=== PATIENT | female | born 1980 | race African-American/Black ===

== ENCOUNTER 2025-06-22 11:00 | Inpatient (IN) | payer BC, OTHER ==
[~2025-06-22] VITALS: Ht 162.6 cm; Wt 121.8 kg
--- NOTE | 2025-06-22 11:16 | ED.PDOC ---
HPI Comments This is a 44 year old female CRISTAL presenting to the ED with chief complaint of SVT. Patient reports that she begun to experiencing chest pain with associated fast heart rate this morning, calling 911 for assistance. EMS relays patient's initial heart rate read in the 230s. EMS states patient was given 6mg of Adenosine with successful conversion from SVT to sinus tachycardia in the 110s. Patient notes that her symptoms have improved, but she is still experiencing chest pain. Patient reports that her last dose of HTN medication was 2 days ago. Patient denies any SOB, dizziness, N/V, abdominal pain, syncope, or headache. 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 Family History Family History: Reviewed,noncontributory to illness Social History Smoker: Non-Smoker Alcohol: Denies ETOH Use Drugs: Denies Drug Use Lives In: Home Constitutional: denies: chills, diaphoresis, fatigue, fever, malaise, sweats, weakness, others EENTM: denies: blurred vision, double vision, ear bleeding, ear discharge, ear drainage, ear pain, ear ringing, eye pain, eye redness, hearing loss, mouth pain, mouth swelling, nasal discharge, nose bleeding, nose congestion, nose pain, photophobia, tearing, throat pain, throat swelling, voice changes, others Respiratory: denies: cough, hemoptysis, orthopnea, SOB at rest, shortness of breath, SOB with excertion, stridor, wheezing, others Cardiovascular: reports: chest pain, irregular heart beat; denies: dizzy spells, diaphoresis, Dyspnea on exertion, edema, left arm pain, lightheadedness, palpitations, PND, syncope, others Gastrointestinal: denies: abdomen distended, abdominal pain, blood streaked bowels, constipated, diarrhea, dysphagia, difficulty swallowing, hematemesis, melena, nausea, poor appetite, poor fluid intake, rectal bleeding, rectal pain, vomiting, others Genitourinary: denies: abnormal vagina bleeding, burning, dyspareunia, dysuria, flank pain, frequency, hematuria, incontinence, pain, , vagina discharge, urgency, others Neurological: denies: dizziness, fainting, headache, left sided numbness, left sided weakness, numbness, paresthesia, pre-existing deficit, right sided numbness, right sided weakness, seizure, speech problems, tingling, tremors, weakness, others Musculoskeletal: denies: back pain, gout, joint pain, joint swelling, muscle pain, muscle stiffness, neck pain, others Integumetry: denies: bruises, change in color, change in hair/nails, dryness, laceration, lesions, lumps, rash, wounds, others Allergic/Immunocompromised: denies: Difficulty Healing, Frequent Infections, Hives, Itching, others Hematologic/Lymphatic: denies: anemia, blood clots, easy bleeding, easy bruising, swollen glands, others Endocrine: denies: excessive hunger, excessive sweating, excessive thirst, excessive urination, flushing, intolerance to cold, intolerance to heat, unexplained weight gain, unexplained weight loss, others Psychiatric: denies: anxiety, bipolar disorder, depression, hopeless, panic disorder, schizophrenia, sleepless, suicidal, others All Other Systems: Reviewed and Negative Physical Exam General Appearance: No Apparent Distress, Normal HEENT: Normal ENT Inspection, Pharynx Normal, TMs Normal Neck: Full Range of Motion, Non-Tender, Normal, Normal Inspection Respiratory: Chest Non-Tender, Lungs Clear, No Accessory Muscle Use, No Respiratory Distress, Normal Breath Sounds Cardiovascular: No Edema, No JVD, No Murmur, No Gallop, Normal Peripheral Pulses, Tachycardia Breast Exam: Deferred Gastrointestinal: No Organomegaly, Non Tender, No Pulsatile Mass, Normal Bowel Sounds, Soft Genitalia: Deferred Pelvic: Deferred Rectal: Deferred Extremities: No calf tenderness, Normal capillary refill, Normal inspection, Normal range of motion, Non-tender, No pedal edema Musculoskeletal : Apperance: Normal Neurologic: Alert, 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 Was a procedure done?: No CP Differential Dx Differential Diagnosis: PSVT X-Ray, Labs, Meds, VS Vital Signs Date Time Temp Pulse Resp B/P (MAP) Pulse Ox O2 Delivery O2 Flow Rate FiO2 06/22/25 13:54 88 06/22/25 11:55 107 06/22/25 11:42 98.7 108 18 134/81 (98) 96 98.7 06/22/25 11:42 108 18 96 Room Air* 0 21 06/22/25 11:12 98.8 111 16 174/98 100 98.8 06/22/25 11:07 106 Lab Test 06/22/25 13:15 06/22/25 11:36 06/22/25 11:29 Range/Units Troponin I High Sensitivity 110 *H 20 </=34 ng/L Urine Test Negative Negative White Blood Count 7.8 4.4-10.8 10^3/uL Red Blood Count 5.51 H 4.0-5.20 10^6/uL Hemoglobin 17.2 H 12.2-16.2 g/dL Hematocrit 51.8 H 36.0-46.0 % Mean Corpuscular Volume 94.1 80.0-100.0 fL Mean Corpuscular Hemoglobin 31.2 28.0-32.0 pg Mean Corpuscular Hemoglobin Concent 33.2 32.0-36.0 g/dL Red Cell Distribution Width 14.3 11.8-14.3 % Platelet Count 386 140-450 10^3/uL Mean Platelet Volume 7.9 6.9-10.8 fL Neutrophils (%) (Auto) 69.3 37.0-80.0 % Lymphocytes (%) (Auto) 24.0 10.0-50.0 % Monocytes (%) (Auto) 5.3 0.0-12.0 % Eosinophils (%) (Auto) 0.5 0.0-7.0 % Basophils (%) (Auto) 0.9 0.0-2.0 % Neutrophils # (Auto) 5.4 1.6-8.6 10 ^3/uL Lymphocytes # (Auto) 1.9 0.4-5.4 10 ^3/uL Monocytes # (Auto) 0.4 0-1.3 10 ^3/uL Eosinophils # (Auto) 0 0-0.8 10 ^3/uL Basophils # (Auto) 0.1 0-0.2 10 ^3/uL Nucleated Red Blood Cells 0.2 % Sodium Level 141 136-145 mmol/L Potassium Level 3.6 3.5-5.1 mmol/L Chloride Level 104 98-107 mmol/L Carbon Dioxide Level 23 20-31 mmol/L Anion Gap 14 5-15 Blood Urea Nitrogen 10 9-23 mg/dL Creatinine 0.96 0.550-1.02 mg/dL Glomerular Filtration Rate Calc 76 >90 mL/min BUN/Creatinine Ratio 10.4 10.0-20.0 Serum Glucose 95 74-106 mg/dL Calcium Level 10.2 8.7-10.4 mg/dL Time of 1ST Reevaluation: 12:13 Reevaluation 1ST: Improved Patient Education/Counseling: Diagnosis, Treatment Family Education/Counseling: No Family Present SEPSIS Sepsis Screen Physician Orders Chest Portable (06/22/25 11:12) Electrocardigram (06/22/25 11:12) Troponin-I Hs (06/22/25 14:12) Electrocardigram (06/22/25 12:12) Electrocardigram (06/22/25 14:12) Vital Signs Date Time Temp Pulse Resp B/P (MAP) Pulse Ox O2 Delivery O2 Flow Rate FiO2 06/22/25 13:54 88 06/22/25 11:55 107 06/22/25 11:42 98.7 108 18 134/81 (98) 96 98.7 06/22/25 11:42 108 18 96 Room Air* 0 21 06/22/25 11:12 98.8 111 16 174/98 100 98.8 06/22/25 11:07 106 Laboratory Tests Test 06/22/25 11:29 White Blood Count 7.8 10^3/uL (4.4-10.8) Departure 1 Departure Time of Disposition: 15:38 (Patient presented with chest pain that was concerning for possible STEMI, ACS, PE, Pneumonia, Muscle Strain, COPD, Dissection. Data: 1. I ordered and reviewed the result of at least 3 labs including a CBC, BMP, and Troponin. 2. I independently interpreted the following tests: EKG which shows normal sinus and Chest X-ray which shows benign chest.Risk:This patient has a high risk of morbidity due to further diagnostic testing or treatment and may suffer from an acute cardiac or respiratory disorder. Workup reveals elevated troponin after SVT. and patient should be admitted for further workup and possible expert consultation. ) Impression: Primary Impression: Acute chest pain Additional Impressions: Elevated troponin Paroxysmal SVT (supraventricular tachycardia) Disposition: ADMITTED INPATIENT Admit to: Tele Condition: Guarded Critical Care Note Critical Care Time?: No Stability Stability form required: No Heart Score Heart Score: Heart Score Response (Comments) Value History Highly Suspicious 2 EKG Repolarization Disturb 1 Age <45 0 Risk Factors 1 or 2 risk factors 1 Troponin >3 x's Normal limit 2 Total 6 I personally scribed for CHIRAG REYES MD ([email or web address]) on 06/22/25 at 11:15. Electronically submitted by Dex Ling ([email or web address]). CHIRAG REYES MD Jun 22, 2025 11:15
[2025-06-22 11:42] VITALS: PULSE 108; RESP 18; O2SAT 96
[2025-06-22 12:04] LABS: Hematocrit 51.8 % (36.0-46.0); Hemoglobin 17.2 g/dL (12.2-16.2); Mean Corpuscular Hemoglobin 31.2 pg (28.0-32.0); Mean Corpuscular Volume 94.1 fL (80.0-100.0); Nucleated Red Blood Cells % 0.2 %
[2025-06-22 12:13] LABS: Chloride 104 mmol/L (98-107); Potassium 3.6 mmol/L (3.5-5.1); Sodium 141 mmol/L (136-145)
[2025-06-22 12:14] LABS: Anion Gap 14 (5-15); Carbon Dioxide 23 mmol/L (20-31)
[2025-06-22 12:15] LABS: Calcium 10.2 mg/dL (8.7-10.4)
[2025-06-22 12:20] LABS: BUN/Creatinine Ratio 10.4 (10.0-20.0); Blood Urea Nitrogen 10 mg/dL (9-23); Glucose 95 mg/dL (74-106)
--- NOTE | 2025-06-22 13:54 | DVH ---
EXAM: XY CHEST PORTABLE Indication: palpitations Technique: Single frontal view of the chest was obtained Comparison: None FINDINGS: Lines and Tubes: None Lungs: No focal consolidation. Pleura: No effusion. No pneumothorax. Cardiomediastinal contours: Unremarkable Bones: No acute osseous abnormality. IMPRESSION: No acute cardiopulmonary disease.
[2025-06-22 19:30] VITALS: PULSE 96; RESP 18; O2SAT 96
[2025-06-22] MEDS ORDERED: ACETAMINOPHEN 325 MG TAB PO PRN (19:45)
[2025-06-22] MEDS ORDERED: TEMAZEPAM 15 MG CAP PO PRN (19:45)
[2025-06-22] MEDS ORDERED: ONDANSETRON HCL 4 MG/2 ML VIAL IV PRN (19:45)
[2025-06-22] MEDS ORDERED: MORPHINE SULFATE INJ 2 MG/ml SYRG IV PRN (20:00)
[2025-06-22] MEDS ORDERED: NITROGLYCERIN 0.4 MG SL TAB SL PRN (20:00)
[2025-06-22] MEDS: hydrALAZINE HCL 20 MG/ML VL IV PRN (20:02)
[2025-06-22 20:11] LABS: Chloride 106 mmol/L (98-107); Potassium 3.7 mmol/L (3.5-5.1); Sodium 141 mmol/L (136-145)
[2025-06-22 20:12] LABS: Anion Gap 10 (5-15); Carbon Dioxide 25 mmol/L (20-31)
[2025-06-22 20:13] LABS: Calcium 8.9 mg/dL (8.7-10.4)
[2025-06-22 20:17] LABS: BUN/Creatinine Ratio 13.8 (10.0-20.0); Blood Urea Nitrogen 12 mg/dL (9-23)
[2025-06-22 20:19] LABS: Glucose 108 mg/dL (74-106)
[2025-06-22] MEDS: ATORVASTATIN 20 MG TAB PO SCH (21:29)
--- NOTE | 2025-06-22 22:11 | DVHHP2 ---
History of Present Illness Reason for Visit: Chest pain History of Present Illness 44-year-old female presents for evaluation of chest pain. Patient reports developing chest pain today while watching TV. She describes the chest pain as substernal sharp with associated palpitations. Denies shortness or breath, nausea or vomiting. She states episode lasted approximately 20 minutes. In route patient was noted to be in SVT. Patient was given adenosine and converted to normal sinus rhythm. Past Medical History Hypertension Past Surgical History Denies Family History Noncontributory Smoke: No ALCOHOL: none Drugs: None Lives: with Family Review of Systems Review of Systems Review of systems are currently negative otherwise addressed in HPI. Allergies: Coded Allergies: NO KNOWN ALLERGIES (Unverified , 06/22/25) Medications Current Medications Medications Dose Ordered Sig/Jori Route Start Time Stop Time Status Last Admin Dose Admin Hydralazine HCl 10 mg Q6HP PRN IV 06/22/25 19:45 06/22/25 20:02 10 MG Aspirin 162 mg DAILY PO 06/23/25 10:00 Atorvastatin Calcium 10 mg HS PO 06/22/25 22:00 06/22/25 21:29 10 MG Temazepam 15 mg QHSP PRN PO 06/22/25 19:45 Ondansetron HCl 4 mg Q4HP PRN IV 06/22/25 19:45 Acetaminophen 650 mg Q6HP PRN PO 06/22/25 19:45 Nitroglycerin 0.4 mg Q5MINP PRN SL 06/22/25 20:00 Morphine Sulfate 2 mg Q30M PRN IV 06/22/25 20:00 Exam Vital Signs Vital Signs Date Time Temp Pulse Resp B/P (MAP) Pulse Ox O2 Delivery O2 Flow Rate FiO2 06/22/25 20:02 164/101 06/22/25 20:00 87 06/22/25 19:30 18 96 Room Air* 0 21 06/22/25 19:30 99.3 99.3 Exam Gen: 44-year-old female in mild distress. Skin: Warm, dry, normal color and texture, no rash. HEENT: Normocephalic atraumatic, mucous membranes moist and pink. Neck: Cervical and supraclavicular nodes normal without enlargement, trachea is midline, thyroid gland is normal without masses. Pulmonary: Clear to auscultation and percussion bilaterally. Cardiac: Regular rate and rhythm. No murmur Abdomen: Soft, nontender, nondistended, bowel sounds present all 4 quadrants, no guarding, no rigidity, no organomegaly. Extremities: No cyanosis, clubbing, no edema Neuro: Cranial nerves II through XII grossly intact, normal affect and speech, no focal motor deficits. Labs/Xrays ORDERING PHYSICIAN: CHIRAG REYES MD PROCEDURE(s): CXRP - CHEST PORTABLE REASON: palpitations ORDER NUMBER(s): [id number], ACCESSION NUMBER(s): [id number] EXAM: XY CHEST PORTABLE Indication: palpitations Technique: Single frontal view of the chest was obtained Comparison: None FINDINGS: Lines and Tubes: None Lungs: No focal consolidation. Pleura: No effusion. No pneumothorax. Cardiomediastinal contours: Unremarkable Bones: No acute osseous abnormality. IMPRESSION: No acute cardiopulmonary disease. Labs Test 06/22/25 19:45 06/22/25 11:36 06/22/25 11:29 Range/Units Sodium Level 141 136-145 mmol/L Potassium Level 3.7 3.5-5.1 mmol/L Chloride Level 106 98-107 mmol/L Carbon Dioxide Level 25 20-31 mmol/L Anion Gap 10 5-15 Blood Urea Nitrogen 12 9-23 mg/dL Creatinine 0.87 0.550-1.02 mg/dL Glomerular Filtration Rate Calc 85 >90 mL/min BUN/Creatinine Ratio 13.8 10.0-20.0 Serum Glucose 108 H 74-106 mg/dL Calcium Level 8.9 8.7-10.4 mg/dL Troponin I High Sensitivity 171 *H </=34 ng/L Urine Test Negative Negative White Blood Count 7.8 4.4-10.8 10^3/uL Red Blood Count 5.51 H 4.0-5.20 10^6/uL Hemoglobin 17.2 H 12.2-16.2 g/dL Hematocrit 51.8 H 36.0-46.0 % Mean Corpuscular Volume 94.1 80.0-100.0 fL Mean Corpuscular Hemoglobin 31.2 28.0-32.0 pg Mean Corpuscular Hemoglobin Concent 33.2 32.0-36.0 g/dL Red Cell Distribution Width 14.3 11.8-14.3 % Platelet Count 386 140-450 10^3/uL Mean Platelet Volume 7.9 6.9-10.8 fL Neutrophils (%) (Auto) 69.3 37.0-80.0 % Lymphocytes (%) (Auto) 24.0 10.0-50.0 % Monocytes (%) (Auto) 5.3 0.0-12.0 % Eosinophils (%) (Auto) 0.5 0.0-7.0 % Basophils (%) (Auto) 0.9 0.0-2.0 % Neutrophils # (Auto) 5.4 1.6-8.6 10 ^3/uL Lymphocytes # (Auto) 1.9 0.4-5.4 10 ^3/uL Monocytes # (Auto) 0.4 0-1.3 10 ^3/uL Eosinophils # (Auto) 0 0-0.8 10 ^3/uL Basophils # (Auto) 0.1 0-0.2 10 ^3/uL Nucleated Red Blood Cells 0.2 % SEPSIS Sepsis Screen Date sepsis recognized/suspect: Jun 22, 2025 Time Sepsis recognized/suspect: 1929 Recent Procedure: No On Antibiotic Therapy: No Respiratory Rate >20: Yes Heart Rate >90: Yes Temp<36 C (96.8 F) or >38.3 C: No SBP <90 or MAP <65 mmHG: No New Acute Mental Status Change: Yes Is the patient on CPAP, BIPAP,: No Physician Orders Hydralazine Injection (Apresoline Inject (06/22/25 19:45) * Cardiology Consult (06/22/25 19:37) Aspirin Tablet (06/23/25 10:00) Atorvastatin (Lipitor) (06/22/25 22:00) Temazepam (Restoril) (06/22/25 19:45) Ondansetron Hcl (Zofran) (06/22/25 19:45) Cardiac Diet-2gna,Lofat,Lochol (06/23/25 Breakfast) Echo 2d Mode Cardiac Dop (06/22/25 19:37) Condition: Fair (06/22/25 19:37) Acetaminophen Tablet (Tylenol Tablet) (06/22/25 19:45) Bedrest With Bathroom Privileg (06/22/25 19:37) Admit (06/22/25 19:58) Nitroglycerin Sublingual (Ntrostat Subli (06/22/25 20:00) Morphine Sulfate Injection (06/22/25 20:00) Stat Ekg For Chest Pain (06/22/25 19:58) Notify Md Of Changes From Base (06/22/25 19:58) Health Safety And Environment Manager For 24 Hours (06/22/25 19:58) Emergency Dysrhythmia Protocol (06/22/25 19:58) Rhythm Strips Once Every Shift (06/22/25 19:58) Oxygen By Nasal Cannula (06/22/25 19:58) Vital Signs Date Time Temp Pulse Resp B/P (MAP) Pulse Ox O2 Delivery O2 Flow Rate FiO2 06/22/25 20:02 164/101 06/22/25 20:00 87 06/22/25 19:30 96 18 96 Room Air* 0 21 06/22/25 19:30 99.3 96 29 173/90 (117) 98 99.3 06/22/25 18:20 95 20 174/94 (120) 98 Laboratory Tests Test 06/22/25 11:29 White Blood Count 7.8 10^3/uL (4.4-10.8) Medications Medications Dose Ordered Sig/Jori Route Start Time Stop Time Status Last Admin Dose Admin Atorvastatin Calcium 10 mg HS PO 06/22/25 22:00 06/22/25 21:29 10 MG Hydralazine HCl 10 mg Q6HP PRN IV 06/22/25 19:45 06/22/25 20:02 10 MG Assessment/Plan Assessment/Plan Assessment SVT Palpitations Hypertension Morbid obesity Elevated troponin, possible demand ischemia Plan Admit the patient to telemetry to the hospitalist Cardiology consultation Echocardiogram pending Resume home medications Continue treatment per orders. Plan discussed with: Patient My Orders Orders - IDALMIS PALENCIA Procedure Category Date Status Time Hydralazine Injection PHA 06/22/25 In Process (Apresoline Inject 19:45 * Cardiology Consult CONS 06/22/25 Transmitted 19:37 Aspirin Tablet PHA 06/23/25 In Process 10:00 Atorvastatin (Lipitor) PHA 06/22/25 In Process 22:00 Temazepam (Restoril) PHA 06/22/25 In Process 19:45 Ondansetron Hcl PHA 06/22/25 In Process (Zofran) 19:45 Cardiac DIET 06/23/25 Transmitted Diet-2gna,Lofat,Lochol Breakfast Echo 2d Mode Cardiac US 06/22/25 Logged DOP 19:37 Condition: Fair [facility] 06/22/25 In Process 19:37 Acetaminophen Tablet [facility] 06/22/25 In Process (Tylenol Tablet) 19:45 Bedrest With Bathroom [facility] 06/22/25 In Process Privileg 19:37 Admit ADMIT 06/22/25 Transmitted 19:58 Nitroglycerin [facility] 06/22/25 In Process Sublingual (Ntrostat 20:00 Morphine Sulfate [facility] 06/22/25 In Process Injection 20:00 Stat Ekg For Chest [facility] 06/22/25 In Process Pain 19:58 Notify Of Changes [facility] 06/22/25 In Process From Base 19:58 Health Safety And Environment Manager For [facility] 06/22/25 In Process 24 Hours 19:58 Emergency Dysrhythmia [facility] 06/22/25 In Process Protocol 19:58 Rhythm Strips Once [facility] 06/22/25 In Process Every Shift 19:58 Oxygen By Nasal RT 06/22/25 Transmitted Cannula 19:58 Date of Service: Jun 22, 2025 Billing Provider: IDALMIS PALENCIA Common Visit Codes: [id number] INP/OBS CARE (HIGH) IDALMIS PALENCIA Jun 22, 2025 22:11
[2025-06-22 22:29] LABS: Triglycerides 72 mg/dL (< 150)
[2025-06-22 22:38] LABS: Cholesterol 210 mg/dL (< 200); HDL Cholesterol 71 mg/dL (40-59)
[2025-06-23] VITALS (9 sets, daily range): BP systolic 138–175; BP diastolic 77–109; PULSE 81–103; RESP 16–19; TEMP 97.7–98.3; O2SAT 97–100
[2025-06-23] MEDS ORDERED: NIFE1TAB31 PO (01:22)
[2025-06-23 09:50] LABS: Hematocrit 45.8 % (36.0-46.0); Hemoglobin 15.6 g/dL (12.2-16.2); Mean Corpuscular Hemoglobin 31.5 pg (28.0-32.0); Mean Corpuscular Volume 92.1 fL (80.0-100.0); Nucleated Red Blood Cells % 0.1 %
[2025-06-23 09:54] LABS: Alanine Aminotransferase 14 U/L (7-40); Albumin 4.3 g/dL (3.2-4.8); Alkaline Phosphatase 64 U/L (46-116); Anion Gap 11 (5-15); BUN/Creatinine Ratio 9.7 (10.0-20.0); Bilirubin, Total 1.0 mg/dL (0.2-1.0); Calcium 9.1 mg/dL (8.7-10.4); Carbon Dioxide 24 mmol/L (20-31); Chloride 104 mmol/L (98-107); Magnesium 2.0 mg/dL (1.6-2.6); Potassium 3.6 mmol/L (3.5-5.1); Sodium 139 mmol/L (136-145); Total Protein 7.8 g/dL (5.7-8.2)
[2025-06-23 09:55] LABS: Blood Urea Nitrogen 7 mg/dL (9-23); Glucose 126 mg/dL (74-106)
--- NOTE | 2025-06-23 11:43 | DVHCONRES ---
Date Seen: Jun 23, 2025 Resident Creating Document: TRACE HERNANDEZ RESIDENT Referring Physician Kings SMITH Reason for Consultation SVT History of Present Illness This is a 44 years old female with a PMH of asthma and hypertension presented to the ED with the chief complaints of palpitations and chest pain which started on the day of admission. Patient reported that she was watching television and suddenly started having palpitations, episode lasted approximately 15 minutes and resolved by adenosine by EMS people. Patient reported that she she never experienced symptoms like this before. Patient admits that she takes energy drinks every alternate day but no coughing no other hard drugs which trigger palpitations. On arrival to ED EKG showed normal sinus rhythm and troponins for 20> 110 > 200 > 171 and BNP was 70.76. PMH: As above PSH: Prednisolone surgeries Family history: Heart disease in grandparents Social history: Lives at home. Denies smoking, alcohol and other drug abuse Allergies: No known allergies Home medications: Albuterol for asthma as needed and nifedipine 30 Patient seen and examined at the bedside. Patient currently is symptom free no palpitations and chest pain reported at this time. And improved since admission. Rest of ROS is negative Family History: Cardiovascular disease maternal grandma Allergies: Coded Allergies: NO KNOWN ALLERGIES (Unverified , 06/22/25) Home Meds Reported Medications Nifedipine (Nifedipine Er) 30 Mg Tab, 30 MG PO DAILY, #90 TAB 1 Refill 06/23/25 Current Medications Current Medications Medications (Trade) Dose Ordered Sig/Jori Route PRN Reason Start Time Stop Time Status Last Admin Hydralazine HCl (Apresoline Injection) 10 mg Q6HP PRN IV SBP>150 06/22/25 19:45 06/22/25 20:02 Aspirin 162 mg DAILY PO 06/23/25 10:00 06/23/25 10:06 Atorvastatin Calcium (Lipitor) 10 mg HS PO 06/22/25 22:00 06/22/25 21:29 Temazepam (Restoril) 15 mg QHSP PRN PO FOR INSOMNIA 06/22/25 19:45 Ondansetron HCl (Zofran) 4 mg Q4HP PRN IV NAUSEA / VOMITING 06/22/25 19:45 Acetaminophen (Tylenol Tablet) 650 mg Q6HP PRN PO PAIN SCALE 1-3 OR TEMP>100.4 06/22/25 19:45 Nitroglycerin (Ntrostat Sublingual) 0.4 mg Q5MINP PRN SL FOR CHEST PAIN 06/22/25 20:00 Morphine Sulfate 2 mg Q30M PRN IV FOR CHEST PAIN 06/22/25 20:00 Nifedipine (Procardia Xl (Time-Release)) 30 mg DAILY PO 06/23/25 10:00 06/23/25 10:07 Vital Signs Vital Signs Date Time Temp Pulse Resp B/P (MAP) Pulse Ox O2 Delivery O2 Flow Rate FiO2 06/23/25 10:07 158/97 06/23/25 09:00 97.9 86 18 100 97.9 06/23/25 08:00 Room Air* 0 21 Physical Exam Pt is lying on bed General Appearance: Alert, Oriented X3, Cooperative, Not in acute distress HEENT: Atraumatic, Mucous membranes moist/pink Respiratory: Clear to auscultation, Normal air movement, No added sounds Cardiovascular: Regular rate, Normal S1, Normal S2, No murmurs Abdominal: Active bowel sounds, Soft, no distention, no tenderness Extremities: No edema, Normal pulses, No tenderness/swelling Skin: No Significant rash, except past surgical scars Neuro: Normal speech, sensorimotor deficits none Psych/Mental Status: Mental status NL, Mood NL Nurse was there as chemical tester during examination Labs/Diagnostic Data Labs Test 06/23/25 08:50 06/22/25 19:45 06/22/25 11:36 Range/Units White Blood Count 5.4 # 4.4-10.8 10^3/uL Red Blood Count 4.97 4.0-5.20 10^6/uL Hemoglobin 15.6 12.2-16.2 g/dL Hematocrit 45.8 # 36.0-46.0 % Mean Corpuscular Volume 92.1 80.0-100.0 fL Mean Corpuscular Hemoglobin 31.5 28.0-32.0 pg Mean Corpuscular Hemoglobin Concent 34.2 32.0-36.0 g/dL Red Cell Distribution Width 13.9 11.8-14.3 % Platelet Count 392 140-450 10^3/uL Mean Platelet Volume 7.9 6.9-10.8 fL Neutrophils (%) (Auto) 63.9 37.0-80.0 % Lymphocytes (%) (Auto) 28.2 10.0-50.0 % Monocytes (%) (Auto) 5.8 0.0-12.0 % Eosinophils (%) (Auto) 1.5 0.0-7.0 % Basophils (%) (Auto) 0.6 0.0-2.0 % Neutrophils # (Auto) 3.5 1.6-8.6 10 ^3/uL Lymphocytes # (Auto) 1.5 0.4-5.4 10 ^3/uL Monocytes # (Auto) 0.3 0-1.3 10 ^3/uL Eosinophils # (Auto) 0.1 0-0.8 10 ^3/uL Basophils # (Auto) 0 0-0.2 10 ^3/uL Nucleated Red Blood Cells 0.1 % Sodium Level 139 136-145 mmol/L Potassium Level 3.6 3.5-5.1 mmol/L Chloride Level 104 98-107 mmol/L Carbon Dioxide Level 24 20-31 mmol/L Anion Gap 11 5-15 Blood Urea Nitrogen 7 L 9-23 mg/dL Creatinine 0.72 0.550-1.02 mg/dL Glomerular Filtration Rate Calc 107 >90 mL/min BUN/Creatinine Ratio 9.7 L 10.0-20.0 Serum Glucose 126 H 74-106 mg/dL Calcium Level 9.1 8.7-10.4 mg/dL Magnesium Level 2.0 1.6-2.6 mg/dL Total Bilirubin 1.0 0.2-1.0 mg/dL Aspartate Amino Transferase (AST) 22 13-40 U/L Alanine Aminotransferase (ALT) 14 7-40 U/L Alkaline Phosphatase 64 46-116 U/L B-Type Natriuretic Peptide 70.76 0-100 pg/mL Total Protein 7.8 5.7-8.2 g/dL Albumin 4.3 3.2-4.8 g/dL Troponin I High Sensitivity 171 *H </=34 ng/L Triglycerides Level 72 < 150 mg/dL Cholesterol Level 210 H < 200 mg/dL LDL Cholesterol 133 H < 100 mg/dL HDL Cholesterol 71 H 40-59 mg/dL Thyroid Stimulating Hormone (TSH) 2.50 0.55-4.78 uIU/mL Urine Test Negative Negative Assessment NSTEMI Type II likely due to SVTs SVT Hypertension crisis Morbid Obesity with a BMI 46.1 Hypertension Hyperlipidemia Plan/Recommendation We will continue with the following plan/recommendations (Dr. Brown): Echocardiogram to evaluate cardiac function Troponins 20> 110 > 200 > 171 Medical management with metoprolol 25 mg b.i.d. as tolerated Strict lifestyle modifications including diet and exercise, avoid triggers like caffeine, alcohol and others Lipid lowering agent BP control Rest Of the management as per primary team Case discussed with . No aggressive management at this time. Outpatient follow up. Plan discussed with: Patient Date of Service: Jun 23, 2025 Billing Provider: ARIADNA BROWN Sr., MD Common Visit Codes: [id number] INP/OBS CARE (MOD) Consultation Codes: [id number] CONSULT <45MIN TRACE HERNANDEZ RESIDENT Jun 23, 2025 11:43
--- NOTE | 2025-06-23 15:57 | DVHPN2 ---
Subjective HR improved with no chest pain Reviewed: H&P Changes from previous H/P or p: No Changes Objective Vitals Vital Signs Date Time Temp Pulse Resp B/P (MAP) Pulse Ox O2 Delivery O2 Flow Rate FiO2 06/23/25 13:00 98.0 91 17 157/109 (125) 97 98.0 06/23/25 08:00 Room Air* 0 21 Intake/Output Intake and Output 06/23/25 05:00 Intake Total 0 ml Balance 0 ml Intake Oral 0 ml # Voids 2 General Appearance: Alert, Oriented X3 HEENT: Atraumatic Cardiovascular: Regular rate, Normal S1, Normal S2 Abdomen: Normal bowel sounds Medications Current Medications Medications Dose Ordered Sig/Jori Route Start Time Stop Time Status Last Admin Dose Admin Hydralazine HCl 10 mg Q6HP PRN IV 06/22/25 19:45 06/23/25 12:19 10 MG Aspirin 162 mg DAILY PO 06/23/25 10:00 06/23/25 10:06 162 MG Atorvastatin Calcium 10 mg HS PO 06/22/25 22:00 06/22/25 21:29 10 MG Temazepam 15 mg QHSP PRN PO 06/22/25 19:45 Ondansetron HCl 4 mg Q4HP PRN IV 06/22/25 19:45 Acetaminophen 650 mg Q6HP PRN PO 06/22/25 19:45 Nitroglycerin 0.4 mg Q5MINP PRN SL 06/22/25 20:00 Morphine Sulfate 2 mg Q30M PRN IV 06/22/25 20:00 Nifedipine 30 mg DAILY PO 06/23/25 10:00 06/23/25 10:07 30 MG Metoprolol Tartrate 25 mg BID PO 06/23/25 22:00 Laboratory Results Laboratory Tests 06/23/25 08:50 Chemistry Test 06/22/25 19:45 06/23/25 08:50 Calcium Level 8.9 mg/dL (8.7-10.4) 9.1 mg/dL (8.7-10.4) Albumin 4.3 g/dL (3.2-4.8) Magnesium Level 2.0 mg/dL (1.6-2.6) Total Protein 7.8 g/dL (5.7-8.2) Lipid panel Test 06/22/25 19:45 Cholesterol Level 210 mg/dL (< 200) H HDL Cholesterol 71 mg/dL (40-59) H Triglycerides Level 72 mg/dL (< 150) Cardiac Markers Test 06/23/25 08:50 B-Type Natriuretic Peptide 70.76 pg/mL (0-100) LFT Test 06/23/25 08:50 Alanine Aminotransferase (ALT) 14 U/L (7-40) Alkaline Phosphatase 64 U/L (46-116) Aspartate Amino Transferase (AST) 22 U/L (13-40) Total Bilirubin 1.0 mg/dL (0.2-1.0) HgA1c, TSH Test 06/22/25 19:45 Thyroid Stimulating Hormone (TSH) 2.50 uIU/mL (0.55-4.78) Urinalysis Test 06/22/25 11:36 Urine Test Negative (Negative) Assessment/Plan Assessment/Plan SVT Palpitations Hypertension Morbid obesity Elevated troponin, possible demand ischemia Continue BP medications Echo pending Cardiology on consult Dispo: Possible Dc in next 1-2 days Plan discussed with: Patient Date of Service: Jun 23, 2025 Billing Provider: ANNETTE REAL MD Common Visit Codes: [id number] INP/OBS CARE(HIGH) ANNETTE REAL MD Jun 23, 2025 15:57
[2025-06-23] MEDS: METOPROLOL TARTRATE 25 MG TAB PO SCH (21:47)
[2025-06-24 01:00] VITALS: BP 140/77; PULSE 79; RESP 20; TEMP 98.3; O2SAT 99
[2025-06-24 05:00] VITALS: BP 132/91; PULSE 79; RESP 18; TEMP 97.5; O2SAT 99
[2025-06-24 08:00] VITALS: PULSE 81; RESP 16
[2025-06-24 08:55] VITALS: BP 131/86; PULSE 89; RESP 16; TEMP 96.1; O2SAT 97
--- NOTE | 2025-06-24 09:53 | DVHPN2 ---
Consult Progress Note Date Seen: Jun 24, 2025 Subjective Other Systems: No overnight cardiac events of monitor Objective vital signs Vital Sign Date Time Temp Pulse Resp B/P (MAP) Pulse Ox O2 Delivery O2 Flow Rate FiO2 06/24/25 08:56 89 131/86 06/24/25 08:55 96.1 16 97 96.1 06/24/25 08:00 Room Air* 0 21 Total Intake and Output 06/23/25 06/23/25 06/24/25 15:00 23:00 07:00 Intake Total 900 ml 200 ml Balance 900 ml 200 ml medications Current Medications Medications Dose Ordered Sig/Jori Route Start Time Stop Time Status Last Admin Dose Admin Hydralazine HCl 10 mg Q6HP PRN IV 06/22/25 19:45 06/23/25 12:19 10 MG Aspirin 162 mg DAILY PO 06/23/25 10:00 06/24/25 08:57 162 MG Atorvastatin Calcium 10 mg HS PO 06/22/25 22:00 06/23/25 21:48 10 MG Temazepam 15 mg QHSP PRN PO 06/22/25 19:45 Ondansetron HCl 4 mg Q4HP PRN IV 06/22/25 19:45 Acetaminophen 650 mg Q6HP PRN PO 06/22/25 19:45 Nitroglycerin 0.4 mg Q5MINP PRN SL 06/22/25 20:00 Morphine Sulfate 2 mg Q30M PRN IV 06/22/25 20:00 Nifedipine 30 mg DAILY PO 06/23/25 10:00 06/24/25 08:56 30 MG Metoprolol Tartrate 25 mg BID PO 06/23/25 22:00 06/24/25 08:56 25 MG laboratory and microbiology Laboratory Tests 06/23/25 08:50 Test 06/23/25 08:50 Range/Units Serum Glucose 126 H 74-106 mg/dL Problem List/Assessment/Plan Problem List/Assessment/Plan Supraventricular tachycardia status post chemical cardioversion NSTEMI Type II likely secondary to above Hypertension urgency Hyperlipidemia Morbid Obesity with a BMI 46.1 * Transthoracic echocardiogram, pending reading. Preliminary preserved LV function with biatrial enlargement * SVT on the field chemically cardioverted with adenosine by EMS prior to arrival * Twelve-lead electrocardiograms revealed a sinus tachycardia rhythm up to 107 bpm * Troponin levels peaked at 202 ng/L Plan: (Dr. Brown) Preliminary transthoracic echocardiogram revealed a preserved LV function. Continue aggressive blood pressure control for a target SBP < 140 mmHg and including metoprolol XL. Replete electrolytes as necessary, potassium over 4 and magnesium over 2. Recommend an outpatient event monitor to further delineate continuation of tachyarrhythmias. Continue lipid-lowering agent. DVT/VTE prophylaxis. Strict lifestyle modifications including diet and exercise, avoid triggers like caffeine, alcohol and others. UDS, UA, BMP, Mg levels pending, primary team to follow on results. Follow-up with a primary field counsel within 3-4 weeks post-discharge. In the setting of an unremarkable TTE, there is no further cardiac work-up indicated at this time. Kindly call with any questions or concerns. Thank you for allowing us to care for this patient. This medical document was created using an electronic medical record system with voice recognition software and computerized dictation system. Although this document has been carefully reviewed, there might still be some phonetic and typographical errors. Occasional wrong-word or ``sound-alike substitutions may have occurred due to the inherent limitations of voice recognition software. These areas are purely typographical due to imperfections of the software programs and do not reflect any compromise in the patient's medical care. Please read the chart carefully and recognize, using context, where these substitutions have occurred. Plan discussed with: Patient, Other Date of Service: Jun 24, 2025 Billing Provider: LEVI GRANGER Cardiology Common Codes: [id number](High LEVI GRANGER Jun 24, 2025 09:53
[2025-06-24] MEDS: ENOXAPARIN SOD 40 MG/0.4 ML SYRINGE SC SCH (10:00)
[2025-06-24 10:44] LABS: Hepatitis B Surface Antigen Negative (Negative)
[2025-06-24 10:54] LABS: Anion Gap 9 (5-15); Carbon Dioxide 26 mmol/L (20-31); Chloride 103 mmol/L (98-107); Potassium 3.9 mmol/L (3.5-5.1); Sodium 138 mmol/L (136-145)
[2025-06-24 10:55] LABS: Calcium 9.2 mg/dL (8.7-10.4)
[2025-06-24 11:00] LABS: BUN/Creatinine Ratio 10.3 (10.0-20.0); Magnesium 2.0 mg/dL (1.6-2.6)
[2025-06-24 11:06] LABS: Blood Urea Nitrogen 8 mg/dL (9-23); Glucose 111 mg/dL (74-106)
[2025-06-24 11:06] LABS: Hepatitis C Antibody Negative (Negative)
[2025-06-24 12:46] LABS: Amphetamine Screen, Urine Neg (NEGATIVE); Barbiturate Scree,Urine Neg (NEGATIVE); Benzodiazephine Screen, Urine Neg (NEGATIVE); Cannabinoid Screen, Urine Neg (NEGATIVE); Cocaine Screen, Urine Neg (NEGATIVE); Opiate Scree,Urine Neg (NEGATIVE); Phencyclidine Screen, Urine Neg (NEGATIVE)
[2025-06-24 12:51] LABS: Urine Protein, UAD Negative (Negative)
[2025-06-24 13:00] VITALS: BP 150/103; PULSE 73; RESP 16; TEMP 97.2; O2SAT 97
[2025-06-24] MEDS: METOPROLOL SUCCINATE XL 50 MG TAB PO SCH (14:25)
[2025-06-24] MEDS ORDERED: NIFE1TAB31 PO (16:03)
[2025-06-24] MEDS ORDERED: ATOR20TA50 PO (16:03)
[2025-06-24] MEDS ORDERED: METO-6 PO (16:03)
[2025-06-24] MEDS ORDERED: ASPI-543 PO (16:03)
--- NOTE | 2025-06-24 16:11 | DVHDS2 ---
Discharge Summary Date of Admission Jun 22, 2025 at 19:58 Date of Discharge: Jun 24, 2025 Labs/Diagnostic Data: Laboratory Results Test 06/24/25 10:42 06/24/25 10:23 06/23/25 08:50 06/22/25 19:45 Urine Color Yellow (Yellow) Urine Clarity Clear (Clear) Urine pH 6.5 (5.0-9.0) Urine Specific [place] 1.013 (1.001-1.035) Urine Protein Negative (Negative) Urine Ketones Negative (Negative) Urine Blood 3+ /uL (Negative) Urine Nitrite Negative (Negative) Urine Bilirubin Negative (Negative) Urine Urobilinogen Normal mg/dL (Negative) Urine Leukocyte Esterase Negative /uL (Negative) Urine RBC 22 /hpf (0 - 4) Urine Microscopic WBC 3 /HPF (0-5) Urine Squamous Epithelial Cells Few /hpf (<5) Urine Bacteria Few /hpf (None Seen) Urine Glucose Normal mg/dL (Normal) Urine Opiates Screen Neg (NEGATIVE) Urine Fentanyl Screen Neg (NEGATIVE) Urine Barbiturates Screen Neg (NEGATIVE) Urine Phencyclidine Screen Neg (NEGATIVE) Urine Amphetamines Screen Neg (NEGATIVE) Urine Benzodiazepines Screen Neg (NEGATIVE) Urine Cocaine Screen Neg (NEGATIVE) Urine Cannabinoids Screen Neg (NEGATIVE) Sodium Level 138 mmol/L (136-145) Potassium Level 3.9 mmol/L (3.5-5.1) Chloride Level 103 mmol/L (98-107) Carbon Dioxide Level 26 mmol/L (20-31) Anion Gap 9 (5-15) Blood Urea Nitrogen 8 mg/dL (9-23) Creatinine 0.78 mg/dL (0.550-1.02) Glomerular Filtration Rate Calc 97 mL/min (>90) BUN/Creatinine Ratio 10.3 (10.0-20.0) Serum Glucose 111 mg/dL (74-106) Hemoglobin A1c 5.2 % A1C (<5.7) Calcium Level 9.2 mg/dL (8.7-10.4) Magnesium Level 2.0 mg/dL (1.6-2.6) White Blood Count 5.4 10^3/uL (4.4-10.8) Red Blood Count 4.97 10^6/uL (4.0-5.20) Hemoglobin 15.6 g/dL (12.2-16.2) Hematocrit 45.8 % (36.0-46.0) Mean Corpuscular Volume 92.1 fL (80.0-100.0) Mean Corpuscular Hemoglobin 31.5 pg (28.0-32.0) Mean Corpuscular Hemoglobin Concent 34.2 g/dL (32.0-36.0) Red Cell Distribution Width 13.9 % (11.8-14.3) Platelet Count 392 10^3/uL (140-450) Mean Platelet Volume 7.9 fL (6.9-10.8) Neutrophils (%) (Auto) 63.9 % (37.0-80.0) Lymphocytes (%) (Auto) 28.2 % (10.0-50.0) Monocytes (%) (Auto) 5.8 % (0.0-12.0) Eosinophils (%) (Auto) 1.5 % (0.0-7.0) Basophils (%) (Auto) 0.6 % (0.0-2.0) Neutrophils # (Auto) 3.5 10 ^3/uL (1.6-8.6) Lymphocytes # (Auto) 1.5 10 ^3/uL (0.4-5.4) Monocytes # (Auto) 0.3 10 ^3/uL (0-1.3) Eosinophils # (Auto) 0.1 10 ^3/uL (0-0.8) Basophils # (Auto) 0 10 ^3/uL (0-0.2) Nucleated Red Blood Cells 0.1 % Total Bilirubin 1.0 mg/dL (0.2-1.0) Aspartate Amino Transferase (AST) 22 U/L (13-40) Alanine Aminotransferase (ALT) 14 U/L (7-40) Alkaline Phosphatase 64 U/L (46-116) B-Type Natriuretic Peptide 70.76 pg/mL (0-100) Total Protein 7.8 g/dL (5.7-8.2) Albumin 4.3 g/dL (3.2-4.8) Hepatitis B Surface Antigen Negative (Negative) Hepatitis C Antibody Negative (Negative) Troponin I High Sensitivity 171 ng/L (</=34) Triglycerides Level 72 mg/dL (< 150) Cholesterol Level 210 mg/dL (< 200) LDL Cholesterol 133 mg/dL (< 100) HDL Cholesterol 71 mg/dL (40-59) Thyroid Stimulating Hormone (TSH) 2.50 uIU/mL (0.55-4.78) Test 06/22/25 11:36 Urine Test Negative (Negative) Other Laboratory Tests 06/24/25 10:23 06/23/25 08:50 Final Diagnosis/Problems List Supraventricular tachycardia status post chemical cardioversion NSTEMI Type II likely secondary to above Hypertension urgency Hyperlipidemia Morbid Obesity with a BMI 46.1 Discharge Disposition: Home Discharge Instruct/Medications Diet: Cardiac 2g Na,low cholest Activity: No Restrictions, As Tolerated Follow Up/Referral: Please follow up with the PCP in 1 week Follow up with Cardiology in 1 week for outpatient event monitoring. Medications: Metoprolol succinate as prescribed, resume nifedipine, baby aspirin and statin. Scheduled Aspirin (Aspir-Low), 81 MG PO DAILY Atorvastatin Calcium (Atorvastatin Calcium), 40 MG PO HS Metoprolol Succinate (Toprol Xl), 25 MG PO DAILY Nifedipine (Nifedipine Er), 30 MG PO DAILY Discharge Statement: "Patient was advised to return to the ER or call 911 if any headaches, dizziness, shortness of breath, chest pain, abdominal pain, bleeding, fevers, or worsening of medical condition. Patient was counseled about treatment plan, medications, possible side effects, patientverbalized understanding. All questions were answered to the best of my ability. This discharge took greater then 30 minutes in planning, reviewing documentation, counseling the patient, and discussing with other team members." ASSESSMENT ASSESSMENT Assessment Supraventricular tachycardia status post chemical cardioversion NSTEMI Type II likely secondary to above Hypertension urgency Hyperlipidemia Morbid Obesity with a BMI 46.1 CRISTOFER MCLEOD MD Jun 24, 2025 16:11
[2025-06-24 16:38] VITALS: BP 148/104; PULSE 79; RESP 17; TEMP 98.1; O2SAT 98
[2025-06-24] MEDS ORDERED: ATORVASTATIN 20 MG TAB PO SCH (22:00)
--- NOTE | 2025-06-27 10:40 | DVHSR ---
APPROVED REPORT EXAM: Two-dimensional and M-mode echocardiogram with Doppler and color Doppler. Blood Pressure: 146/92 mmHg INDICATION SVT RISK FACTORS Obesity: Height: 65, Weight: 268 DIMENSIONS LVDd 4.9 (3.8-5.7cm) LA (2D) 4.2 (1.9-4.0cm) Aortic Root 3.2 (2.0-3.7cm) LVDs 3.6 (2.5-4.0cm) LA (MM) (1.9-4.0cm) Aortic Cusp Exc 1.9 (1.5-2.0cm) EF (%) 53.0 (55-70%) Rt. Atrium 3.5 (1.9-4.0cm) Asc. Aorta 3.4 cm IVSd 0.7 (0.7-1.1cm) RV (D) 4.1 (1.8-2.4cm) PWd 0.8 (0.7-1.1cm) Mitral Valve Mitral Mitral Stenosis E wave 0.42m/s MV Mean GR. mmHg A wave 0.72m/s MV Peak GR. mmHg E/A ratio 0.6 2D MVA cm2 DECEL Time 249ms PRESS 1/2 Time ms Aortic Valve Aortic Valve Aortic Stenosis V1 0.75m/s AO Mean GR. 4mmHg V2 1.23m/s AO Peak GR. 6mmHg LVOT Diameter 2.3 (1.8-2.4cm) Doppler YOLY 2.53cm2 Pulmonic Valve V2 0.83m/s Tricuspid Valve TR Velocity 2.43m/s RVSP 30mmHg Other Information Quality : Limited Rhythm : Technically limited study due to body habitus.patient position. Conclusion lvef 335% dilated LV marked dilated RV and dysfunction biatrial enlargement mild mitral regurg cannot estimate tricuspid regurg
== END 2025-06-24 18:15 | disposition home or self-care (01) | DRG 281 ==
LOC: EDBD 11:00 → ER 11:18 → OVERFLOW 19:58 → TELE-CENTR 23:50
PROVIDERS: ADMIT Internal Medicine; ATTEND Internal Medicine
DX: I47.10 Supraventricular tachycardia, unspecified (principal); Z68.42 Body mass index [BMI] 45.0-49.9, adult; I21.A1 Myocardial infarction type 2; I16.0 Hypertensive urgency; E66.01 Morbid (severe) obesity due to excess calories; I10 Essential (primary) hypertension; E78.5 Hyperlipidemia, unspecified; Z79.899 Other long term (current) drug therapy
CPT/HCPCS: 36415; 71045; 80048; 80053; 80061; 80307; 81001; 81025; 83036; 83735; 83880; 84443; 84484; 85025; 86803; 87340; 93306; G0378